=== PATIENT | male | born 1995 | race Native Hawaiian/Other Pacific Islander ===

== ENCOUNTER 2017-06-13 15:04 | Outpatient (CLI) | payer OTHER | END 2017-06-13 15:09 | disposition home or self-care (01) | LOC: AMB 15:04 | DX: Z04.1 Encounter for examination and observation following transport accident (principal) ==

== ENCOUNTER 2017-06-13 16:26 | Emergency (ER) | payer OTHER ==
[~2017-06-13] VITALS: Ht 177.8 cm; Wt 117.9 kg
== END 2017-06-13 19:51 | disposition home or self-care (01) ==
LOC: ED 16:26
DX: S40.012A Contusion of left shoulder, initial encounter (principal); S40.212A Abrasion of left shoulder, initial encounter; V89.2XXA Person injured in unspecified motor-vehicle accident, traffic, initial encounter
CPT/HCPCS: 99283